=== PATIENT | female | born 1995 | race African-American/Black ===

== ENCOUNTER 2022-06-14 18:39 | Emergency (ER) | payer SELFPAY ==
[~2022-06-14 18:39] MED LIST: Iopamidol 300 61% 100 ML VIAL FS ONE
[2022-06-14] MEDS ORDERED: cefTRIAXone (ROCEPHIN) 1 GM VIAL ONE (21:07)
[2022-06-14] MEDS ORDERED: Dexamethasone 10 MG/ML VIAL ONE (21:07)
[2022-06-14] MEDS ORDERED: diphenhydrAMINE 50 MG/ML VIAL ONE (21:16)
== END 2022-06-14 21:43 | disposition home or self-care (01) ==
LOC: CSHERS 18:39
DX: J36 Peritonsillar abscess (principal)
CPT/HCPCS: 70491; 87081; 87430; 96365; 96375; J0696; J1100; J1200; Q9967